=== PATIENT | female | born 1980 | race Caucasian/White ===

== ENCOUNTER 2018-12-18 07:39 | Day surgery (SDC) | payer OTHER ==
[~2018-12-18] VITALS: Ht 160 cm; Wt 50.3 kg
[~2018-12-18 07:39] MED LIST: OXYTOCIN 10 UNITS/ML VIAL ONE
[2018-12-18] MEDS ORDERED: ROCURONIUM 50 MG/5 ML VIAL IV ONE (08:45)
[2018-12-18] MEDS ORDERED: ONDANSETRON 4 MG/2 ML VIAL ONE (08:45)
[2018-12-18] MEDS ORDERED: SEVOFLURANE 250 ML BTL INH ONE (08:45)
[2018-12-18] MEDS ORDERED: DEXAMETHASONE 4 MG/ML VIAL ONE (08:45)
[2018-12-18] MEDS ORDERED: KETOROLAC 30 MG/ML VIAL ONE (08:45)
[2018-12-18] MEDS ORDERED: PROPOFOL 200 MG/20 ML VIAL IV ONE (08:45)
[2018-12-18] MEDS ORDERED: SUCCINYLCHOLINE CHLORIDE 200 MG/10 ML VIAL IVP ONE (08:45)
[2018-12-18] MEDS ORDERED: BUPIVACAINE-MPF/EPI 0.25% 30 ML VIAL INJ ONE (08:56)
[2018-12-18] MEDS ORDERED: MEPERIDINE 50 MG/ML SYR ONE (08:59)
[2018-12-18] MEDS ORDERED: fentaNYL 0.05 MG/ML VIAL ONE (08:59)
[2018-12-18] MEDS ORDERED: MIDAZOLAM 2 MG/2 ML VIAL ONE (08:59)
[2018-12-18] MEDS ORDERED: LACTATED RINGERS 1,000 ML IV SCH (09:12)
[2018-12-18] MEDS ORDERED: diphenhydrAMINE 50 MG/ML VIAL IVP PRN (09:15)
[2018-12-18] MEDS ORDERED: ONDANSETRON 4 MG/2 ML VIAL IVP PRN (09:15)
[2018-12-18] MEDS ORDERED: MEPERIDINE 25 MG/ML SYR IVP PRN (09:15)
[2018-12-18] MEDS ORDERED: HYDROmorphone 1 MG/ML AMP IVP PRN ×2 (09:15→10:10)
[2018-12-18] MEDS ORDERED: NACL 0.9% 1,000 ML IV SCH (10:07)
[2018-12-18] MEDS ORDERED: ACETAMINOPHEN 325 MG TAB PO PRN (10:10)
[2018-12-18] MEDS ORDERED: HYDROcodone/APAP 5/325 MG 1 TAB TAB PO PRN (10:10)
[2018-12-18] MEDS ORDERED: MORPHINE SULFATE 2 MG/ML SYR IVP PRN (10:10)
[2018-12-18] MEDS ORDERED: MORPHINE SULFATE 4 MG/ML SYR IV PRN (10:10)
[2018-12-18] MEDS ORDERED: ONDANSETRON 4 MG/2 ML VIAL IV PRN (10:10)
== END 2018-12-18 15:05 | disposition home or self-care (01) ==
LOC: MDS 07:39 → MMU 07:40 → MDS 15:05
PROVIDERS: ATTEND Surgery
DX: K80.11 Calculus of gallbladder with chronic cholecystitis with obstruction (principal); K82.1 Hydrops of gallbladder; Z98.890 Other specified postprocedural states; Z79.899 Other long term (current) drug therapy
CPT/HCPCS: 36415; 47562; 71045; 82374; 86886; 86900; 86901; 88304; J0330; J0690; J1100; J1170; J1885; J2175; J2250; J2405; J2590; J2704; J3010; J3490; J7030; J7060; J7120